=== PATIENT | female | born 1950 | race Native Hawaiian/Other Pacific Islander ===

== ENCOUNTER 2019-12-28 14:30 | Emergency (ER) | payer OTHER ==
[~2019-12-28] VITALS: Ht 160 cm; Wt 77.1 kg
[2019-12-28 14:43] VITALS: TEMP 98.7
[2019-12-28 15:07] LABS: POTASSIUM 3.6 mmol/L (3.6-5.2)
[2019-12-28 15:12] LABS: PLATELET COUNT 242 K/uL (152-353)
[2019-12-28 16:47] VITALS: BP 110/70
== END 2019-12-28 16:40 | disposition home or self-care (01) ==
LOC: ED 14:30
PROVIDERS: Family Medicine
DX: U07.1 COVID-19 (principal); F41.8 Other specified anxiety disorders; R11.0 Nausea
CPT/HCPCS: 80053; 81000; 85027; 87502; 99283

== ENCOUNTER 2019-12-29 22:49 | Emergency (ER) | payer OTHER ==
[~2019-12-29] VITALS: Ht 160 cm; Wt 79.4 kg
[2019-12-29 23:10] LABS: PLATELET COUNT 242 K/uL (152-353)
[2019-12-29 23:25] LABS: POTASSIUM 3.5 mmol/L (3.6-5.2); SODIUM 140 mmol/L (136-145)
[2019-12-29 23:33] LABS: PARTIAL THROMBOPLASTIN TIME 25.9 SECONDS (24.5-33.6)
[2019-12-30 02:25] VITALS: BP 120/67; TEMP 98.3
== END 2019-12-30 02:25 | disposition home or self-care (01) ==
LOC: ED 22:49
PROVIDERS: Hospitalist
DX: U07.1 COVID-19 (principal); J06.9 Acute upper respiratory infection, unspecified; R19.7 Diarrhea, unspecified
CPT/HCPCS: 80053; 82550; 83880; 84484; 85027; 85610; 85730; 87502; 87651; 93005; 96365; 96375; 99284; J0696; J1100